=== PATIENT | female | born 1945 | race Caucasian/White ===

== ENCOUNTER 2020-02-01 23:34 | Inpatient (IN) | payer MEDICARE ==
[~2020-02-01] VITALS: Ht 160 cm; Wt 81.6 kg
[2020-02-01 23:43] VITALS: BP 184/79
[2020-02-02] VITALS (7 sets, daily range): BP systolic 119–166; BP diastolic 47–84
[2020-02-02 00:21] LABS: ABSOLUTE LYMPHOCYTES 1.5 thou/uL (0.8-5.3); ABSOLUTE MONOCYTES 0.8 thou/uL (0.0-1.2); BASOPHILS 0.5 %; EOSINOPHILS 0.5 %; HEMATOCRIT 35.5 % (37.0-47.0); HEMOGLOBIN 12.1 gm/dL (12.0-15.0); MCH 31.5 pg (26.0-34.0); MCHC 33.9 g/dL (28.0-37.0); MCV 92.8 fL (80.0-100.0); MONOCYTES 9.5 %; MPV 9.1 fl. (7.2-11.1); NUCLEATED RBCS 0 /100WBC; PLATELET COUNT* 243 thou/uL (150-400); POLYS 71.5 %; RBC 3.83 mil/uL (4.20-5.00); RDW-CV 12.8 % (10.5-14.5); WBC 8.4 thou/uL (4.0-11.0)
[2020-02-02 00:26] LABS: CALCIUM 9.3 mg/dL (8.5-10.1); CREATININE 0.8 mg/dL (0.6-1.3)
[2020-02-02 00:28] LABS: POTASSIUM 2.8 mmol/L (3.5-5.1)
[2020-02-02 00:37] LABS: ALBUMIN 3.7 g/dL (3.4-5.0); MAGNESIUM 1.8 mg/dL (1.8-2.4); TOTAL PROTEIN 7.3 g/dL (6.4-8.2)
[2020-02-02 00:55] LABS: PROTIME 9.9 Seconds (9.20-11.50)
[2020-02-02 01:57] LABS: URINE BILIRUBIN NEGATIVE (Negative); URINE BLOOD NEGATIVE (Negative); URINE CLARITY CLEAR; URINE COLOR YELLOW; URINE GLUCOSE-RANDOM NEGATIVE (Negative); URINE KETONES NEGATIVE (Negative); URINE LEUKOCYTES-REFLEX TRACE (Negative); URINE NITRITE-REFLEX NEGATIVE (Negative); URINE PROTEIN NEGATIVE (Negative); URINE SPECIFIC GRAVITY <= 1.005 (1.005-1.030); URINE UROBILINOGEN 0.2 E.U./dl (0.2-1.0)
--- NOTE | 2020-02-02 02:04 | NUR ---
LULI NOTIFIED UPON PT RETURN PT CONNECTED TO MONITOR
[2020-02-02 02:11] LABS: CASTS None Seen /LPF (None Seen); SQUAMOUS 0-3 Few /LPF (0-3)
[2020-02-02 02:12] LABS: BACTERIA-REFLEX None Seen /HPF (None Seen); CRYSTALS None Seen /LPF (None Seen); URINE RBC None Seen /HPF (0-2); URINE WBC-REFLEX 0-5 Rare /HPF (0-5)
--- NOTE | 2020-02-02 05:39 | NUR ---
RECEIVED PATIENT BY CART FROM ED AT 0358 IN STABLE CONDITION. ADMISSION ROUTINES IN PROGRESS. UP TO BR INDEPENDENTLY. MEDICATION FOR PAIN X 1 TO GOOD EFFECT. POTASSIUM REPLACEMENT IN PROGRESS. CONTINUE TO MONITOR.
[2020-02-02 07:16] LABS: HEMATOCRIT 37.6 % (37.0-47.0); HEMOGLOBIN 12.9 gm/dL (12.0-15.0); MCH 31.7 pg (26.0-34.0); MCHC 34.3 g/dL (28.0-37.0); MCV 92.5 fL (80.0-100.0); MPV 9.2 fl. (7.2-11.1); RBC 4.06 mil/uL (4.20-5.00); WBC 7.4 thou/uL (4.0-11.0)
[2020-02-02 07:29] LABS: ALBUMIN 3.8 g/dL (3.4-5.0); CALCIUM 9.4 mg/dL (8.5-10.1); CREATININE 0.7 mg/dL (0.6-1.3); DIRECT BILIRUBIN 2.4 mg/dL (<0.1-0.3); MAGNESIUM 2.1 mg/dL (1.8-2.4); PHOSPHORUS* 3.1 mg/dL (2.5-4.9); TOTAL BILIRUBIN 6.4 mg/dL (<0.1-1.0); TOTAL PROTEIN 7.5 g/dL (6.4-8.2)
[2020-02-02 07:30] LABS: POTASSIUM 3.9 mmol/L (3.5-5.1)
--- NOTE | 2020-02-02 10:30 | EKG ---
[place] [address] ELECTROCARDIOGRAM REPORT Name: RONALD JUSTICE Room: [address] ADM IN [facility]#: [id number] Admission: 02/02/20 Attend Phys: Cathy Hannon, Discharge: Date of : 47 Date of Service: 02/01/20 2340 Report #: [id number] THIS REPORT FOR: //name// [facility] ED Test Date: 2020-02-01 Test Time: 23:40:27 Pat Name: RONALD JUSTICE Department: Room: [facility] Gender: F Workforce Management Coordinator: MATTHIEU : 1945 Requested By: Luz Marina Lebron Order Number: [id number] MD: Cory Alberto Measurements Intervals [place] Rate: 85 P: 88 WA: 158 QRS: 65 QRSD: 151 T: -6 QT: 421 QTc: 501 Interpretive Statements Sinus rhythm Right bundle branch block No previous ECG available for comparison Electronically Signed On 02-02-2020 10:29:49 SHOE STICKS REPAIRER by Cory Alberto [email or web address] <ELECTRONICALLY SIGNED> By: Cory Alberto MD, [facility] 02/02/20 1029 2340 Cory Alberto MD, [facility] /EPI
--- NOTE | 2020-02-02 11:45 | NUR ---
PT.ALERT AND ORIENTED. STATED SHE LIVES WITH HER SON. SHE IS INDEPENDENT. NO USE OF DME. NURSING SAID PT.IS UP AD KHUSHBU IN ROOM. PLAN IS TO RETURN HOME AT DISCHARGE WITH NO NEEDS.
--- NOTE | 2020-02-02 12:07 | NUR ---
PT TRANSFERED TO 211. VITALS STABLE. IV PATENT. REPORT CALLED. PERSONAL ITEMS SENT WITH PT.
--- NOTE | 2020-02-02 16:18 | NUR ---
PT TRANSFERRED TO ROOM 211 VIA WHEELCHAIR FROM MED SURG AT APPROXIMATELY 1210. REPORT RECEIVED FROM JODY PRATHER. THIS RN AGREES WITH PREVIOUS ENVIRONMENTAL HEALTH MANAGER. SEPSIS SCREENING NEGATIVE. PT DENIES ANY PAIN OR SHORTNESS OF BREATH. PT GIVEN IV PAIN MEDS PRIOR TO TRANSFER. REFER TO EMAR. PT NPO. UP AD KHUSHBU IN ROOM. TRACING SB/SR ON THE AGRICULTURAL EDUCATION TEACHER. ON RA SAT UPPER 90'S. IVF. GI AND SURGERY CONSULT IN PLACE. CARDIOLOGY HERE TO SEE PT. OK FOR SURGERY IF NEEDED PER DR BARRAZA. PT DENIES ANY CHEST PAIN. MEDS PER MAR. PT REPOSITIONS SELF. HOURLY ROUNDING OBSERVED. BED IN LOW POSITION. CALL LIGHT WITHIN REACH. WILL CONTINUE PLAN OF CARE.
[2020-02-03 04:00] VITALS: BP 151/63
[2020-02-03 05:31] LABS: HEMATOCRIT 33.1 % (37.0-47.0); HEMOGLOBIN 11.1 gm/dL (12.0-15.0); MCH 31.9 pg (26.0-34.0); MCHC 33.6 g/dL (28.0-37.0); MCV 94.9 fL (80.0-100.0); MPV 9.5 fl. (7.2-11.1); RBC 3.49 mil/uL (4.20-5.00); RDW-CV 13.1 % (10.5-14.5)
[2020-02-03 06:05] LABS: ALBUMIN 3.3 g/dL (3.4-5.0); ALKALINE PHOSPHATASE 179 U/L (46-116); ANION GAP 17 mmol/L (7-16); BUN 9 mg/dL (7-18); CALCIUM 8.6 mg/dL (8.5-10.1); CHLORIDE 108 mmol/L (98-107); CHOLESTEROL 199 mg/dL (<200); CO2 14 mmol/L (21-32); CREATININE 0.6 mg/dL (0.6-1.3); GLUCOSE 83 mg/dL (70-99); HDL CHOLESTEROL 59 mg/dL (>40); LDL CHOLESTEROL 114 mg/dL (<100); MAGNESIUM 2.2 mg/dL (1.8-2.4); POTASSIUM 4.1 mmol/L (3.5-5.1); SGOT 152 U/L (15-37); SGPT 254 U/L (30-65); SODIUM 139 mmol/L (136-145); TC:HDL 3.4 Ratio (Not establshd); TOTAL BILIRUBIN 8.1 mg/dL (<0.1-1.0); TRIGLYCERIDE 130 mg/dL (<150); VLDL 26 mg/dL (<40)
[2020-02-03 06:07] LABS: SERUM ASSESSMENT Clear
[2020-02-03 06:18] LABS: HEPATITIS B SURFACE AG Negative (Negative)
[2020-02-03] MEDS ORDERED: LISINOPRIL5 MG PO (11:52)
[2020-02-03] MEDS ORDERED: PROTONIX40 M2 PO (11:52)
[2020-02-03] MEDS ORDERED: ENOXAPARIN40 MG/0.1 SUBQ (11:52)
[2020-02-03] MEDS ORDERED: ROCEPHIN 11 GM/1001 IV (11:52)
[2020-02-03] MEDS ORDERED: ASA81BEC PO (11:52)
--- NOTE | 2020-02-03 12:30 | CON ---
[address] [address] CONSULTATION Name: RONALD JUSTICE Room: [address] IN ..#: [id number] Admission: 02/02/20 Attend Phys: Cathy Hannon MD Discharge: Date of : 47 Report #: [id number] THIS REPORT FOR: cc: FAM - No family physician/PCP FAM - No family physician/PCP ~ Mati Hebert MD DATE OF SERVICE: 02/02/2020 PRIMARY CARE PHYSICIAN: Dr. Dilan Jimenez. Please note at the time of this dictation, the patient was seen and physically examined by myself. REASON FOR CONSULTATION: Transaminitis and abdominal pain. HISTORY OF PRESENT ILLNESS: This is a 74-year-old female who presented to the Emergency Room. She states that yesterday she initially started having some left-sided upper abdominal discomfort, which is each hour progressed, it seemed to intensify. She did not feel that it was like a heart attack, but it did worry her because of its unusual presentation and by late that evening prompted her to come in to be seen. She was having a little bit of nausea with these episodes as well. She was not having any oral intake because she did not feel like eating. She denied any fever, chills or any shortness of breath at that time. The patient does admit that she has had similar pains in the past, but it only lasted maybe for an hour, but this time, it was unrelenting. The patient did have an EGD and colonoscopy done in [place] some time ago, she thinks 8-10 years ago and does not recall what it showed. She denies any issues with acid reflux since after she lost weight. ALLERGIES: No known drug allergies. MEDICATIONS FROM HOME: None. PAST MEDICAL HISTORY: Coronary artery disease, [place]. PAST SURGICAL HISTORY: She has had a CABG, tubal ligation and ankle surgery. FAMILY HISTORY: Negative for any GI or female cancers. SOCIAL HISTORY: Nonsmoker, rarely drinks and does not use any illegal drugs. REVIEW OF SYSTEMS: Twelve-point review of systems is essentially negative except what is [place] [address] CONSULTATION Name: RONALD JUSTICE Room: [address] IN [facility]#: [id number] Admission: 02/02/20 Attend Phys: Cathy Hannon MD Discharge: Date of : 47 Report #: [id number] PHYSICAL EXAMINATION: VITAL SIGNS: Temperature 37, pulse 80, respirations 15, blood pressure 153/47. HEART: Regular rate and rhythm. LUNGS: Clear. ABDOMEN: Soft, positive bowel sounds in all 4 quadrants with tenderness noted in the epigastric to right upper quadrant area. LABORATORY DATA: Hemoglobin 12.1, white count is 7.4, platelets 250. GFR is 82. Total bilirubin was 5 on admission, she is 6.4 now. Alkaline phosphatase was 146, she is 165. ALT was 277, she is bumped to 297. AST was 266, she is 246. Potassium was 2.[address] scan of the abdomen and pelvis showed gallbladder distention with a small amount of adjacent edema with some extrahepatic common ductal dilatation at 7 mm and a small hiatal hernia noted. IMPRESSION: 1. Abdominal pain. 2. Transaminitis. 3. Hypokalemia. PLAN: 1. Ultrasound results pending. 2. If ultrasound is negative for any stones, then likely she will need surgical intervention for her gallbladder for acalculous cholecystitis. Thank you for allowing us to participate in this patient's care. Please do not hesitate to call with any questions in regard to this consult. Reviewed US, will get MRCP. Also recommend getting hemolysis labs as the bilirubinemia is mostly indirect. Otherwise agree with the above assessment and plan by Melany Linares. <ELECTRONICALLY SIGNED> By: Mati Hebert MD 02/03/20 1230 1042 [id number] Hebert MD /nt
--- NOTE | 2020-02-03 14:47 | NUR ---
Pt is A&O. Resides at home with her grandson. Independent. No DME. No hx of HH or SNF. GI following. CM attempted to transfer Pt to [place] for EUS, [place] on diversion, plan to keep Pt in house. Goal is home at dc, no needs anticipated.
[2020-02-03 16:11] VITALS: BP 124/69
--- NOTE | 2020-02-03 17:53 | NUR ---
TOOK OVER PATIENT'S CARE AT APPROX. 1516 WHEN SHE ARRIVED TO UNIT FROM PACU AFTER HAVING ERCP. PATIENT HAS 2 IV'S PRESENT, ONE IN RIGHT AC AND RIGHT FOREARM. D5W 1/2 NS W/ KCL INFUSING INTO RIGHT FOREARM IV SUCCESSFULLY AT 100ML/HR. PATIENT HAS DENIED ANY PAIN SINCE ARRIVING TO UNIT. PATIENT IS A&OX4, PLEASANT AND COOPERATIVE WITH CARES. PATIENT DOES WELL AMBULATING WITH STANDBY ASSIST. PATIENT DENIES CONCERNS AT THIS TIME; CALL LIGHT AND FREQUENTLY USED ITEMS WITHIN REACH.
--- NOTE | 2020-02-03 19:28 | NUR ---
PER PATIENT REQUEST, THIS NURSE CONTACTED PATIENT'S DAUGHTER, DANIS, TO UPDATE HER ON PATIENT'S CONDITION, SHE STATED SHE "COULDN'T REMEMBER EVERYTHING". DANIS WAS APPRECIATIVE FOR PHONE CALL. ALSO, APPROX. 1839, PATIENT C/O LEFT STERNAL PAIN RADIATING TO RLQ, WHICH SHE STATES "IS THE SAME PAIN THAT BROUGHT ME TO THE ER". PRN MORPHINE ADMINISTERED WITH EFFECTIVE RESULTS.
[2020-02-03 19:45] VITALS: BP 138/71
--- NOTE | 2020-02-04 05:35 | NUR ---
PT HAS SLEPT WELL OVERNIGHT. UP WITH SBA AND IV POLE TO BR TO VOID WITHOUT DIFFICULTY. NO N/V OR REQUESTS FOR ADDITIONAL PAIN MEDICATION OVERNIGHT. SCDS ON. RFA IVF INFUSING PER PUMP. ABLE TO USE CALL LITE AND MAKE NEEDS KNOWN. AM LABS DRAWN.
[2020-02-04 06:28] LABS: ABSOLUTE MONOCYTES 0.7 thou/uL (0.0-1.2); ABSOLUTE NEUTROPHILS 6.2 thou/uL (1.6-8.1); BASOPHILS 0.2 %; EOSINOPHILS 0.1 %; HEMATOCRIT 30.5 % (37.0-47.0); HEMOGLOBIN 10.4 gm/dL (12.0-15.0); LYMPHOCYTES 12.5 %; MCH 32.2 pg (26.0-34.0); MCV 94.7 fL (80.0-100.0); MONOCYTES 9.2 %; MPV 9.6 fl. (7.2-11.1); NUCLEATED RBCS 0 /100WBC; PLATELET COUNT* 214 thou/uL (150-400); RBC 3.22 mil/uL (4.20-5.00); RDW-CV 12.8 % (10.5-14.5); WBC 7.9 thou/uL (4.0-11.0)
[2020-02-04 07:07] LABS: CALCIUM 8.3 mg/dL (8.5-10.1); CREATININE 0.7 mg/dL (0.6-1.3); MAGNESIUM 2.1 mg/dL (1.8-2.4); POTASSIUM 4.3 mmol/L (3.5-5.1); TOTAL BILIRUBIN 3.4 mg/dL (<0.1-1.0); TOTAL PROTEIN 6.7 g/dL (6.4-8.2)
[2020-02-04 07:30] VITALS: BP 130/59
--- NOTE | 2020-02-04 11:49 | CON ---
[address] [address] CONSULTATION Name: RESHMARONALD Amber Room: [address] IN .R.#: [id number] Admission: 02/02/20 Attend Phys: Cathy Hannon MD Discharge: Date of : 47 Report #: [id number] THIS REPORT FOR: cc: FAM - No family physician/PCP FAM - No family physician/PCP ~ Cory Alberto MD [facility] DATE OF SERVICE: 02/02/2020 CARDIOLOGY CONSULTATION HISTORY OF PRESENT ILLNESS: The patient is a 74-year-old single white female who I was asked to see in the hospital today because of her history of coronary artery disease. The patient states that almost 10 years ago, she was admitted to the [facility] and underwent 4-vessel coronary artery bypass surgery. She has done well since that time. She has not had a stress test for years. She is not very active at this time. She denies recent chest pain, shortness of breath, palpitations, syncope or peripheral edema. Recently, she has been having epigastric pain. Denied nausea, vomiting, diarrhea, bleeding. She denied trauma to her abdomen. The pain would come and go. It is not related to food. She finally came to the hospital and was admitted. She is felt to have gallstones. Because of her history of coronary artery disease, Cardiology consultation was requested. PAST MEDICAL HISTORY: Only significant for cataract surgery. No history of hypertension, diabetes, hyperlipidemia. Only medications include aspirin. She does snore at night and had a sleep study in the past and was found to have sleep apnea, but cannot tolerate CPAP. FAMILY HISTORY: Her father had bypass surgery. SOCIAL HISTORY: Single, lives in [place]. No smoking or alcohol abuse. REVIEW OF SYSTEMS: She is overweight, being 5 feet 3 inches, 180 pounds. No history of stroke, asthma, liver disease, kidney disease, cancer, psychiatric illness, chronic skin condition. PHYSICAL EXAMINATION: GENERAL: Revealed an elderly female lying in bed. She appeared in no distress. VITAL SIGNS: Blood pressure is 150/60, pulse is 80, she is afebrile. HEENT: She is anicteric. Conjunctivae pink. Mucous membranes moist. NECK: Veins do not appear distended. Left carotid bruit was heard. CHEST: Clear to auscultation. CARDIOVASCULAR: Regular rate and rhythm without murmur. ABDOMEN: [place] [address] CONSULTATION Name: RONALD JUSTICE Amber Room: [address]#: [id number] Admission: 02/02/20 Attend Phys: Cathy Hannon MD Discharge: Date of : 47 Report #: [id number] EXTREMITIES: Had no edema. Dorsalis pedis pulse 1+ bilaterally. SKIN: Cool and dry. NEUROLOGIC: Nonfocal. RADIOLOGICAL DATA: Her ECG showed a sinus rhythm with a right bundle branch block. Her workup, she had a portable chest x-ray done last night that showed normal heart size, clear lung toribio. She had a CT scan of the abdomen and pelvis that showed gallbladder wall thickening. No evidence of gallstones, small hiatal hernia. LABORATORY DATA: Potassium 3.9, creatinine 0.7, SGOT 246, bilirubin 6.4. Alkaline phosphatase is 165, SGPT 297. Troponin 0.06. White blood cell count 7.4, hemoglobin 12.9. IMPRESSION AND RECOMMENDATIONS: 1. Suspect cholecystitis. 2. Previous coronary artery bypass surgery. No history of angina. 3. Elevated blood pressure. I would consider starting an KIRK inhibitor. 4. Hyperlipidemia. Recommend a statin drug. 5. Sleep apnea. The patient cannot tolerate CPAP. 6. Obesity. Recommend diet and exercise. The patient appears to have no cardiac contraindication to cholecystectomy. I believe a risk for cardiac complications with cholecystectomy is low at this time. Recommend no further cardiac evaluation. <ELECTRONICALLY SIGNED> By: Cory Alberto MD, FACC 02/04/20 1149 1443 [id number] Alberto MD, FACC /nt
--- NOTE | 2020-02-04 12:36 | NUR ---
THIS NURSE AGREES WITH ASSESSMENT BY MARYLOU JUSTICE
[2020-02-04 17:23] VITALS: BP 119/41
--- NOTE | 2020-02-04 17:29 | NUR ---
DIET ADVANCED, PAIN BETTER, NEEDS AN EUS OUTPT. POSSIBLE DISCHARGE TOMORORW IF FAISAL. DIET.
--- NOTE | 2020-02-04 18:24 | NUR ---
PT ALERT AND ORIENTED X 4. PT AMBULAORY WITHOUT ASSIST. FLUIDS REMAIN INFUSING THROUGH IV SITE. PT TOLERATING PO INTAKE WELL. PT DENIED NAUSEA AND ABDOMINAL PAIN THROUGHOUT SHIFT. CALL LIGHT WITHIN REACH. WILL CONTINUE TO MONITOR.
[2020-02-04 20:00] VITALS: BP 122/57
[2020-02-05 04:53] LABS: MCH 31.8 pg (26.0-34.0); MCHC 33.5 g/dL (28.0-37.0); MPV 9.4 fl. (7.2-11.1); RBC 3.16 mil/uL (4.20-5.00); WBC 5.3 thou/uL (4.0-11.0)
[2020-02-05 05:15] LABS: ALBUMIN 2.6 g/dL (3.4-5.0); CALCIUM 8.1 mg/dL (8.5-10.1); CREATININE 0.8 mg/dL (0.6-1.3); DIRECT BILIRUBIN 0.5 mg/dL (<0.1-0.3); POTASSIUM 4.1 mmol/L (3.5-5.1); TOTAL BILIRUBIN 0.9 mg/dL (<0.1-1.0); TOTAL PROTEIN 5.9 g/dL (6.4-8.2)
--- NOTE | 2020-02-05 06:33 | NUR ---
ASSUMED PT'S CARE THIS PM SHIFT. ALERT AND ORIENTED. VSS ON RA. MEDS GIVEN PER EMAR. PT SLEPT WELL THIS SHIFT. AMBULATES INDPENDENTLY TO THE BATHROOM. PAIN LEVEL OF 2. DESCRIBED MORE DISCOMFORT. DENIED PAIN MEDS. CALL LIGHT WITHIN REACH. ANTICIPATED DC TODAY. HOURLY ROUNDINGS MADE. WILL CONTINUE TO MONITOR.
[2020-02-05] MEDS ORDERED: ASPIR 8181 MG PO (07:20)
[2020-02-05] MEDS ORDERED: LIPITOR 40 MG T40 M1 PO (07:20)
[2020-02-05] MEDS ORDERED: LISINOPRIL5 MG PO (07:20)
[2020-02-05 07:50] VITALS: BP 147/83
--- NOTE | 2020-02-05 09:36 | NUR ---
THIS NURSE AGREES WITH MORNING ASSESSMENT BY MARYLOU JUSTICE
[2020-02-05 10:57] VITALS: BP 147/83
--- NOTE | 2020-02-05 11:11 | NUR ---
PT ALERT AND ORIENTED X 4. NO COMPLAINTS OF PAIN OR NAUSEA AT THIS TIME. PT TOLERATING PO INTAKE WELL. PT UP AD KHUSHBU WITH STEADY GAIT. IV'S TAKEN OUT WITH CATHETER INTACT. TRANSPORTED VIA W/C WITH NURSING.
[2020-02-05 11:21] VITALS: BP 147/83
[2020-02-06 05:07] LABS: ANA INTERPRETATION Negative (Negative)
== END 2020-02-05 11:22 | disposition home or self-care (01) | DRG 445 ==
LOC: M.ERS 23:34 → M.TBA-ER 02-02 02:21 → M.3W 02-02 03:58 → M.2W 02-02 08:46 → M.3W 02-03 14:47
PROVIDERS: Emergency Medicine; Internal Medicine Gastroenterology; ADMIT Internal Medicine; ATTEND Internal Medicine
PROC: 0F798ZZ Dilation of Common Bile Duct, Via Natural or Artificial Opening Endoscopic (ICD-10-PCS; principal; 2020-02-03)
DX: K80.43 Calculus of bile duct with acute cholecystitis with obstruction (principal); R65.10 Systemic inflammatory response syndrome (SIRS) of non-infectious origin without acute organ dysfunction; I25.10 Atherosclerotic heart disease of native coronary artery without angina pectoris; R74.01 Elevation of levels of liver transaminase levels; E80.6 Other disorders of bilirubin metabolism; Z20.828 Contact with and (suspected) exposure to other viral communicable diseases; E87.6 Hypokalemia; E78.5 Hyperlipidemia, unspecified; E66.9 Obesity, unspecified; Z79.82 Long term (current) use of aspirin; Z79.899 Other long term (current) drug therapy; Z95.1 Presence of aortocoronary bypass graft; I25.2 Old myocardial infarction; Z98.49 Cataract extraction status, unspecified eye; Z68.31 Body mass index [BMI] 31.0-31.9, adult